=== PATIENT | female | born 1945 | race Caucasian/White ===

== ENCOUNTER 2020-03-12 00:47 | Emergency (ER) | payer MEDICARE ==
[~2020-03-12] VITALS: Ht 154.9 cm; Wt 90.9 kg
[2020-03-12] MEDS ORDERED: proCHLORperazine 10 MG/2 ml inj IM ONE (01:35)
[2020-03-12] MEDS ORDERED: morphine 4 MG/ML inj SYRINge IM ONE (02:20)
[2020-03-12] MEDS ORDERED: triamcinolone acetonide 40mg/ml inj IM ONE (02:20)
[2020-03-12] MEDS ORDERED: ondansetron 4mg rapidly disintigrating tab PO ONE (02:20)
[2020-03-12] MEDS ORDERED: HYDR-3965 PO (03:00)
[2020-03-12] MEDS ORDERED: ONDA4TAB6 PO (03:00)
[2020-03-12 03:23] VITALS: BP 134/74
== END 2020-03-12 03:25 | disposition home or self-care (01) ==
LOC: ER 00:48
DX: M54.81 Occipital neuralgia (principal); I10 Essential (primary) hypertension; J45.909 Unspecified asthma, uncomplicated; E03.9 Hypothyroidism, unspecified; M19.90 Unspecified osteoarthritis, unspecified site; Z88.5 Allergy status to narcotic agent; Z79.899 Other long term (current) drug therapy
CPT/HCPCS: 70450; 96372; 99284; J0780; J2270; J3301

== ENCOUNTER → 2021-07-02 | Day surgery (SDC) | payer MEDICARE ==
[2021-06-25 12:38] LABS: BASOPHILS % (AUTO) 0.4 % (0-1); EOSINOPHILS # (AUTO) 0.1 X10'3 (0-0.9); EOSINOPHILS % (AUTO) 1.5 % (0-6); LYMPHOCYTES # (AUTO) 1.7 X10'3 (1.1-4.8); LYMPHOCYTES % (AUTO) 21.4 % (21-51); MEAN CORPUSCULAR HEMOGLOBIN 31.6 PG (27.0-31.0); MEAN CORPUSCULAR HGB CONC 33.7 g/dL (33.0-36.5); MEAN CORPUSCULAR VOLUME 93.6 FL (78-98); MEAN PLATELET VOLUME 9.1 FL (7.4-10.4); MONOCYTES # (AUTO) 0.6 X10'3 (0-0.9); NEUTROPHILS # (AUTO) 5.6 X10'3 (1.8-7.7); NEUTROPHILS % (AUTO) 69.7 % (42-75); PRE OP HEMATOCRIT 42.4 % (35.0-45.0); PRE OP HEMOGLOBIN 14.3 g/dL (12.0-16.0); PRE OP PLATELET COUNT 226 X10'3 (140-440); RED BLOOD COUNT 4.53 X10'6 (4.20-5.60); RED CELL DISTRIBUTION WIDTH 13.1 % (11.5-14.5)
[2021-06-25 12:45] LABS: CLARITY,URINE CLEAR (Clear); COLOR,URINE YELLOW (Yellow); GLUCOSE, URINE NEGATIVE (Neg); KETONES,URINE NEGATIVE (Neg); LEUKOCYTE ESTERASE ,URINE NEGATIVE (Neg); NITRITES, URINE NEGATIVE (Neg); OCCULT BLOOD,URINE NEGATIVE (Neg); PROTEIN,URINE NEGATIVE (Neg); UROBILINOGEN,URINE 0.2 E.U/dL (0.2-1.0)
[2021-06-25 12:48] LABS: UA COLLECTION TYPE CLN CATCH MIDSTREAM
[2021-06-25 12:49] LABS: ALBUMIN 4.3 G/DL (3.4-5.0); ALBUMIN/GLOBULIN RATIO 1.2 (1.1-1.5); ALKALINE PHOSPHATASE 114 IU/L (46-116); BLOOD UREA NITROGEN 16 MG/DL (7-18); BUN/CREATININE RATIO 18.6 (6.6-38.0); CALCIUM 8.7 MG/DL (8.5-10.1); CHLORIDE 107 MMOL/L (99-107); CREATININE 0.86 MG/DL (0.40-0.90); PRE OP ALT 32 U/L (30-65); PRE OP ANION GAP 11 (8-16); PRE OP AST 23 U/L (10-37); PRE OP BILIRUB, TOTAL 0.4 MG/DL (0.0-1.0); PRE OP GLUCOSE 127 MG/DL (70-104); PRE OP POTASSIUM 3.9 MMOL/L (3.4-5.1); PRE OP SODIUM 143 MMOL/L (135-145); TOTAL CARBON DIOXIDE 24.9 MMOL/L (24-32); TOTAL PROTEIN 7.8 G/DL (6.4-8.2); eGFR 64 ML/MIN
[2021-07-02] VITALS (9 sets, daily range): BP systolic 116–150; BP diastolic 57–72
[~2021-07-02] VITALS: Ht 154.9 cm; Wt 88.5 kg
[~2021-07-02] MED LIST: ALBU8.5H17 INH; ASPI-1265 PO; CBD DROPS PO; DICL20GE TD; FLUT16SP11 BOTHNARES; GUAI120015 PO; HYDROmorphone/PF 0.2 MG/ML SYRINGE IV PRN; LEVO75TA7 PO; LIDOcaine 1%/PF 5ML 10 MG/ML VIAL ONE; LISI-643 PO; MELO-102 PO; MONT10TA32 PO; OMEP-50 PO; PRAS25CA PO; ROPIVAcaine 0.5% (5mg/ml) 30ml vial ONE; SIMV20TA PO; acetaminophen 1,000mg/100ml IV 100 ML IV ONE; bacitracin 15gm ointment TP ONE; cefazolin/dext.iso 2gm/100ml IV ONE; dexamethasone sod phosphate 4mg/ml inj. ONE; ePHEDrine 50MG/ML INJ. ONE; famotidine 20mg tablet PO ONE; fentaNYL/PF 50MCG/1 ML 2ML syringe ONE; glycopyrrolate 0.2mg/ml inj ONE; ipratropium/albuterol 3ml nebule NEB PRN; midazolam 1 mg/ML 2ml injection ONE; morphine 2 MG/ML inj. syringe IV PRN; neostigmine methylsulfate 1 MG/ML 10ml vial ONE; ondansetron/PF 4mg/2ml inj IV PRN; ondansetron/PF 4mg/2ml inj ONE; propofol inj 20 ML IV ONE; ringers solution, lacted 1,000 ML IV SCH; rocuronium 10mg/ml inj IV ONE; sevoflurane 250ml liquid IH ONE
--- NOTE | 2021-07-02 12:33 | NUR ---
Received from OR via [facility] , accompanied by Anesthesiologist MODESTO and report given by Anesthesiolgist. PATIENT WITH 20G PIV IN LEFT HAND RUNNING LR AT 100. RIGHT ANKLE AND FOOT IN SPLINT THAT IS CDI. NO S.S. OF BLEEDING. + CAP REFILL AND BLANCHING OF TOES. FOOT OF BED GATCHED UPON ARRIVAL. 10L MASK ON WITH 100% SATURATIONS. Addendum: 07/02/21 at 1244 by Michael Shi RN, RN Amended: Links added.
--- NOTE | 2021-07-02 13:43 | NUR ---
ALL DC INSTRUCTIONS COVERED WITH PATIENT. DENIES PAIN AT THIS TIME 2' NERVE BLOCKS X2 PATIENT VOIDED, DRESSED AND WAS TAKEN OUT VIA WHEELCHAIR WHERE SHE DISPLACED CORRECT NWB STATUS TO LE. PATIENT AND SPOUSE EDUCATED ON IMPORTANCE OF ELEVATION OF LIMB ABOVE HEART. PATIENT UNDERSTOOD ALL DC INSTRUCTIONS AND ALL QUESTIONS HAVE BEEN ANSWERED. ALL CRITERIA HAS BEEN MET. Addendum: 07/02/21 at 1358 by Michael Shi RN, RN Amended: Links added.
== END | disposition home or self-care (01) ==
LOC: PAS 07:22
PROVIDERS: ATTEND Podiatrist Foot & Ankle Surgery
DX: M76.61 Achilles tendinitis, right leg (principal); M92.61 Juvenile osteochondrosis of tarsus, right ankle; M20.5X1 Other deformities of toe(s) (acquired), right foot; M19.071 Primary osteoarthritis, right ankle and foot; G89.18 Other acute postprocedural pain; J45.909 Unspecified asthma, uncomplicated; I10 Essential (primary) hypertension; K21.9 Gastro-esophageal reflux disease without esophagitis; E66.9 Obesity, unspecified; Z68.36 Body mass index [BMI] 36.0-36.9, adult; Z88.5 Allergy status to narcotic agent; Z88.2 Allergy status to sulfonamides; Z88.8 Allergy status to other drugs, medicaments and biological substances; Z79.899 Other long term (current) drug therapy; Z79.01 Long term (current) use of anticoagulants; Z98.890 Other specified postprocedural states; Z90.710 Acquired absence of both cervix and uterus; Z20.822 Contact with and (suspected) exposure to COVID-19
CPT/HCPCS: 27650; 27687; 28119; 28750; 36415; 64447; 64450; 73620; 76000; 76942; 80053; 81003; 82948; 85025; 85730; 94640; 94760; A6223; C1713; J0131; J1100; J2250; J2405; J2704; J2710; J3010; J7120; U0003; U0005; Z7506; Z7508; Z7512; A4215; A4618; A6253; A6449; A7000; J2795; J3490

== ENCOUNTER 2021-11-22 16:04 | Emergency (ER) | payer MEDICARE ==
[~2021-11-22] VITALS: Ht 154.9 cm; Wt 85.9 kg
[~2021-11-22 16:04] MED LIST changes: -HYDROmorphone/PF 0.2 MG/ML SYRINGE IV PRN; -LIDOcaine 1%/PF 5ML 10 MG/ML VIAL ONE; +MONT-40 PO; -MONT10TA32 PO; -ROPIVAcaine 0.5% (5mg/ml) 30ml vial ONE; -acetaminophen 1,000mg/100ml IV 100 ML IV ONE; -bacitracin 15gm ointment TP ONE; -cefazolin/dext.iso 2gm/100ml IV ONE; -dexamethasone sod phosphate 4mg/ml inj. ONE; -ePHEDrine 50MG/ML INJ. ONE; -famotidine 20mg tablet PO ONE; -fentaNYL/PF 50MCG/1 ML 2ML syringe ONE; -glycopyrrolate 0.2mg/ml inj ONE; -ipratropium/albuterol 3ml nebule NEB PRN; -midazolam 1 mg/ML 2ml injection ONE; -morphine 2 MG/ML inj. syringe IV PRN; -neostigmine methylsulfate 1 MG/ML 10ml vial ONE; -ondansetron/PF 4mg/2ml inj IV PRN; -ondansetron/PF 4mg/2ml inj ONE; -propofol inj 20 ML IV ONE; -ringers solution, lacted 1,000 ML IV SCH; -rocuronium 10mg/ml inj IV ONE; -sevoflurane 250ml liquid IH ONE
[2021-11-22] MEDS ORDERED: ketorolac trometh. 30mg/ml inj. IM ONE (18:05)
[2021-11-22] MEDS ORDERED: HYDROcodone/acetaminophen 10/325mg tab PO ONE (18:05)
[2021-11-22 18:30] LABS: CLARITY,URINE CLEAR (Clear); GLUCOSE, URINE NEGATIVE (Neg); KETONES,URINE NEGATIVE (Neg); LEUKOCYTE ESTERASE ,URINE NEGATIVE (Neg); NITRITES, URINE NEGATIVE (Neg); OCCULT BLOOD,URINE NEGATIVE (Neg); PROTEIN,URINE NEGATIVE (Neg); UROBILINOGEN,URINE 0.2 E.U/dL (0.2-1.0)
[2021-11-22] MEDS ORDERED: iohexol 300mg/ml 100ml inj. ONE (18:35)
--- NOTE | 2021-11-22 18:40 | NUR ---
Patient reports she is allergic to Toradol, when given she vomits.
[2021-11-22 18:41] LABS: COLOR,URINE STRAW (Yellow); UA COLLECTION TYPE URINAL
[2021-11-22 18:46] LABS: BASOPHILS % (AUTO) 0.7 % (0-1); EOSINOPHILS # (AUTO) 0.3 X10'3 (0-0.9); EOSINOPHILS % (AUTO) 5.1 % (0-6); HEMATOCRIT 38.4 % (35.0-45.0); HEMOGLOBIN 13.4 g/dl (12.0-16.0); LYMPHOCYTES # (AUTO) 1.7 X10'3 (1.1-4.8); LYMPHOCYTES % (AUTO) 27.6 % (21-51); MEAN CORPUSCULAR HEMOGLOBIN 31.9 PG (27.0-31.0); MEAN CORPUSCULAR HGB CONC 34.8 g/dL (33.0-36.5); MEAN CORPUSCULAR VOLUME 91.7 FL (78-98); MEAN PLATELET VOLUME 9.3 FL (7.4-10.4); MONOCYTES # (AUTO) 0.5 X10'3 (0-0.9); MONOCYTES % (AUTO) 7.4 % (2-12); NEUTROPHILS # (AUTO) 3.6 X10'3 (1.8-7.7); NEUTROPHILS % (AUTO) 59.2 % (42-75); PLATELET COUNT 182 X10'3 (140-440); RED BLOOD COUNT 4.19 X10'6 (4.20-5.60); WHITE BLOOD COUNT 6.2 X10'3 (4.5-11.0)
[2021-11-22 18:52] LABS: ALANINE AMINOTRANSFERASE 17 U/L (12-78); ALBUMIN/GLOBULIN RATIO 1.4 (1.1-1.5); ALKALINE PHOSPHATASE 119 IU/L (46-116); ANION GAP 8 (8-16); ASPARTATE AMINO TRANSFERASE 12 U/L (10-37); BILIRUBIN,TOTAL 0.3 MG/DL (0.1-1.0); BLOOD UREA NITROGEN 17 MG/DL (7-18); BUN/CREATININE RATIO 18.3 (6.6-38.0); CALCIUM 9.1 MG/DL (8.5-10.1); CHLORIDE 105 MMOL/L (99-107); CREATININE 0.93 MG/DL (0.40-0.90); GLUCOSE 107 MG/DL (70-104); SODIUM 141 MMOL/L (135-145); TOTAL CARBON DIOXIDE 27.8 MMOL/L (24-32); TOTAL PROTEIN 6.9 G/DL (6.4-8.2); eGFR 58 ML/MIN
--- NOTE | 2021-11-22 19:47 | NUR ---
PT IN [place].
[2021-11-22] MEDS ORDERED: HYDR-3972 PO (20:54)
[2021-11-22 21:04] VITALS: BP 145/76
== END 2021-11-22 21:06 | disposition home or self-care (01) ==
LOC: ER 16:04
DX: M54.50 Low back pain, unspecified (principal); I10 Essential (primary) hypertension; J45.909 Unspecified asthma, uncomplicated; E03.9 Hypothyroidism, unspecified; M19.90 Unspecified osteoarthritis, unspecified site; Z88.8 Allergy status to other drugs, medicaments and biological substances; Z88.2 Allergy status to sulfonamides; Z79.82 Long term (current) use of aspirin; Z79.899 Other long term (current) drug therapy; Z98.890 Other specified postprocedural states
CPT/HCPCS: 36415; 74177; 80053; 81003; 85025; 99285; Q9967